=== PATIENT | female | born 1990 | race Caucasian/White ===

== ENCOUNTER 2019-04-17 17:02 | Emergency (ER) | payer MEDICAID ==
--- NOTE | 2019-04-17 17:52 | EDM.PDOC ---
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 The patient notes that she is roughly 5-6 weeks . She notes her last menstrual period to be 03/07/19. She states that she started spotting/bleeding last night, however this got better this morning. There was no bleeding during the day, she states that she was walking in [employer] and pushed a heavy shopping cart and she began to notice the bleeding that started again. She is not sure if there were any clots present. She denies any cramping at this time. She states that she has taken 5 positive test at home. She has had 2 other pregnancies with no complications. She is a at this time. She has an appointment with an OB provider at [facility] on May 02. She denies any urinary symptoms such as dysuria or urinary frequency or urgency. 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: Social & Family History - Tobacco Use Smoking Status *Q: Never Smoker - Recreational Drug Use Recreational Drug Use: No ED ROS GENERAL - Review of Systems Review Of Systems: See Below Constitutional: Reports: No Symptoms HEENT: Reports: No Symptoms Respiratory: Reports: No Symptoms Cardiovascular: Reports: No Symptoms Endocrine: Reports: No Symptoms GI/Abdominal: Reports: No Symptoms : Reports: Other (vaginal bleeding) Musculoskeletal: Reports: No Symptoms Skin: Reports: No Symptoms Neurological: Reports: No Symptoms Psychiatric: Reports: No Symptoms Hematologic/Lymphatic: Reports: No Symptoms ED EXAM - Physical Exam Exam: See Below Exam Limited By: No Limitations General Appearance: Alert, WD/WN, No Apparent Distress (pt is crying in the room ) Respiratory/Chest: No Respiratory Distress, Lungs Clear, Normal Breath Sounds, No Accessory Muscle Use, Chest Non-Tender Cardiovascular: Normal Peripheral Pulses, Regular Rate, Rhythm, No Murmur GI/Abdominal Exam: Normal Bowel Sounds, Soft, Non-Tender, No Distention (Female) Exam: Normal Bimanual Exam, Normal External Exam, Normal Speculum Exam, Vaginal Bleeding (small amount of dark red blood present in vaginal canal) . No: Adnexal Tenderness, Cervical Dilatation, Cervical Fluid, Cervix Motion Tenderness, Products of Conception, Tissue Present in Cervix/Vagina Heart Tones: Not [place] Movement: Not Appreciated Neurological: Alert, Oriented, Normal Cognition, No Motor/Sensory Deficits Psychiatric: Normal Affect, Normal Mood, Tearful Skin Exam: Warm, Dry, Intact, Normal Color, No Rash Course - Vital Signs Last Recorded V/S: Last Vital Signs Temp 98.3 F 04/17/19 17:11 Pulse 100 04/17/19 17:11 Resp 18 04/17/19 17:11 BP 127/76 04/17/19 17:11 Pulse Ox 97 04/17/19 17:11 - Orders/Labs/Meds Orders: Active Orders 24 hr Category Date Time Status OB Transvaginal [US] Stat Exams 04/17/19 17:27 Ordered PATIENT RETYPE [BBK] Routine Lab 04/17/19 18:23 Ordered Labs: Laboratory Tests 04/17/19 04/17/19 04/17/19 Range/Units 17:41 17:41 17:41 WBC 11.25 H (3.98-10.04) K/mm3 RBC 4.88 (3.98-5.22) M/mm3 Hgb 12.8 (11.2-15.7) gm/L Hct 39.7 (34.1-44.9) % MCV 81.4 (79.4-94.8) fl MCH 26.2 (25.6-32.2) pg MCHC 32.2 (32.2-35.5) g/dl RDW Std Deviation 44.5 (36.4-46.3) fL Plt Count 348 (182-369) K/mm3 MPV 9.1 L (9.4-12.3) fl Neut % (Auto) 59.8 (34.0-71.1) % Lymph % (Auto) 30.0 (19.3-51.7) % Haakon % (Auto) 8.0 (4.7-12.5) % Eos % (Auto) 2.0 (0.7-5.8) Baso % (Auto) 0.1 (0.1-1.2) % Neut # (Auto) 6.74 H (1.56-6.13) K/mm3 Lymph # (Auto) 3.37 (1.18-3.74) K/mm3 Haakon # (Auto) 0.90 H (0.24-0.36) K/mm3 Eos # (Auto) 0.22 (0.04-0.36) K/mm3 Baso # (Auto) 0.01 (0.01-0.08) K/mm3 HCG, Qual Positive H (NEGATIVE) HCG, Quant 2624.0 mIU/mL Blood Type Gel Antibody Screen 04/17/19 Range/Units 17:41 WBC (3.98-10.04) K/mm3 RBC (3.98-5.22) M/mm3 Hgb (11.2-15.7) gm/L Hct (34.1-44.9) % MCV (79.4-94.8) fl MCH (25.6-32.2) pg MCHC (32.2-35.5) g/dl RDW Std Deviation (36.4-46.3) fL Plt Count (182-369) K/mm3 MPV (9.4-12.3) fl Neut % (Auto) (34.0-71.1) % Lymph % (Auto) (19.3-51.7) % Haakon % (Auto) (4.7-12.5) % Eos % (Auto) (0.7-5.8) Baso % (Auto) (0.1-1.2) % Neut # (Auto) (1.56-6.13) K/mm3 Lymph # (Auto) (1.18-3.74) K/mm3 Haakon # (Auto) (0.24-0.36) K/mm3 Eos # (Auto) (0.04-0.36) K/mm3 Baso # (Auto) (0.01-0.08) K/mm3 HCG, Qual (NEGATIVE) HCG, Quant mIU/mL Blood Type A POSITIVE Gel Antibody Screen Negative - Re-Assessments/Exams Free Text/Narrative Re-Assessment/Exam: 04/17/19 17:51 Patient presents to the ED for the evaluation of a possible miscarriage. I have ordered labs and a transvaginal ultrasound for further evaluation of her symptoms. 04/17/19 18:45 Patient's hCG quantitative level is 2624. Which would place her anywhere in the 4-5 weeks range. Which would be consistent with her LMP, ultrasound reading is still pending. 04/17/19 19:49 Patient's US is done and demonstrates an early intrauterine , gestational sac measuring 7mm, no free fluid, and a simple R ovarian cyst measuring 2.7 cm x 2.7 cm. 04/17/19 20:06 OB ged preparation teacher, Dr. Malin, was consulted via telephone, he states that is no other worrisome signs or symptoms of this patient's visit. He recommends that she take it easy over the next couple days and get plenty of fluids. He states that she should keep her appointment with her OB provider on 02 May, she may call on Thursday to see if they would like an hCG level repeated or not. Departure - Departure Time of Disposition: 20:07 Disposition: Home, Self-Care 01 Condition: Fair Clinical Impression: Vaginal bleeding during - Discharge Information *PRESCRIPTION DRUG MONITORING PROGRAM REVIEWED*: No *COPY OF PRESCRIPTION DRUG MONITORING REPORT IN PATIENT TORITO: No Instructions: Vaginal Bleeding During , First Trimester Referrals: PCP,None [Primary Care Provider] - Forms: ED Department Discharge Additional Instructions: You have been evaluated in the ED today for your vaginal bleeding with . Your ultrasound showed a early intrauterine , with a gestational yolk sac identified, this sac diameter is 7 mm. There is no embryonic pole that has been identified, this is still a normal finding for an early . There is no significant free fluid, but it did show a simple appearing right ovarian cyst measuring 2.7 x 2.7 cm. This should not cause you any problems. The oracle application consultant ged preparation teacher recommends that you take it easy over the next couple days, get plenty of rest and fluids, and call your OB doctor on Thursday to see if they would like the hCG level repeated. He also recommended that you keep the May 02 appointment for further evaluation. Your hCG level at this ER visit was 2624. If you should develop increasing vaginal bleeding, cramping, with clots. This would be cause for immediate return to the ER for evaluation. Please return to the ED if her symptoms should change or worsen. - My Orders Last 24 Hours: My Active Orders 04/17/19 17:27 OB Transvaginal [US] Stat 04/17/19 18:23 PATIENT RETYPE [BBK] Routine - Assessment/Plan Last 24 Hours: My Active Orders 04/17/19 17:27 OB Transvaginal [US] Stat 04/17/19 18:23 PATIENT RETYPE [BBK] Routine
--- NOTE | 2019-04-19 10:18 | US ---
First trimester obstetrical ultrasound: Multiple real-time images were obtained transvaginally. Comparison: No previous study for current . Findings: Small cystic area noted within the endometrial cavity believed to represent gestational sac. Yolk sac is noted. No pole seen at this time. No subchorionic hemorrhage is identified. Right ovary shows an incidental corpus luteum cyst. Left ovary not visualized. Measurements: Gestational sac: 0.71 cm Impression: 1. Small cystic area within the endometrial cavity most likely due to gestational sac. Findings may represent very early . Recommend repeat study in 11 days to confirm normal developing . 2. Corpus luteum cyst within the maternal right ovary. Diagnostic code #2 I agree with preliminary report from [facility], finalized on 04/17/19, 8:45 PM Central Time
== END 2019-04-17 20:24 | disposition home or self-care (01) ==
LOC: JD.ED 17:02
DX: O20.9 Hemorrhage in early pregnancy, unspecified (principal); Z3A.01 Less than 8 weeks gestation of pregnancy; Z79.899 Other long term (current) drug therapy
CPT/HCPCS: 36415; 76817; 76817-26; 84702; 84703; 85025; 86850; 86900; 86901; 99282; 99284-25

== ENCOUNTER 2019-04-23 15:32 | Emergency (ER) | payer SELFPAY ==
--- NOTE | 2019-04-23 16:22 | EDM.PDOC ---
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 Patient was evaluated here 04/17/19 with concerns of having a miscarriage. Her last menstrual cycle was approximately 5 weeks ago. Ultrasound was obtained at that time indicating estimated gestation of 4-5 weeks. Her quantitative level was 2624. Bleeding subsided after evaluation. She was seen by Dr. Crump this past with no concerns at that time. Later that evening at approximately 1900 hrs. the bleeding started up again. She was changing her pad every time with using the bathroom q4hrs. She has been only using panty liners and notes they have not been completely saturated. States yesterday she developed some cramping with a few more episodes of bleeding. Nothing heavy noted. Today this morning approximately 1150 she passed a blood clot with some viveros tissue present. She is wondering if she had a miscarriage. Bleeding is minimal at this time. Her vital signs are stable. She has no abdominal pain, heavy vaginal bleeding, dizziness, nausea/vomiting, fever, dysuria, and/or any additional complaints. Again she has only changed her panty liners twice today with no saturating noted. Hx: . Currently taking vitamins. Lower Back Pain Score (Numeric/FACES): 5 - Related Data Allergies Allergy/AdvReac Type Severity Reaction Status Date / Time No Known Allergies Allergy Verified 04/17/19 17:10 Home Meds: Home Meds Pnv No.95/Ferrous Fum/Folic AC [ Caplet] 1 tab PO DAILY 04/17/19 [ History] Past Medical History HEENT History: Reports: Impaired Vision Other HEENT History: Wears glasses Genitourinary History: Reports: Pyelonephritis DIRECTOR OUTPATIENT SERVICES History: Reports: Social & Family History - Tobacco Use Smoking Status *Q: Never Smoker - Caffeine Use Caffeine Use: Reports: Coffee, Soda - Recreational Drug Use Recreational Drug Use: No ED ROS GENERAL - Review of Systems Review Of Systems: ROS reveals no pertinent complaints other than HPI. ED EXAM - Physical Exam Exam: See Below Exam Limited By: No Limitations General Appearance: Alert, WD/WN, No Apparent Distress Ears: Hearing Grossly Normal Nose: Normal Inspection Throat/Mouth: Normal Voice, No Airway Compromise Head: Atraumatic, Normocephalic Neck: Normal Inspection, Supple Respiratory/Chest: No Respiratory Distress, Lungs Clear, Normal Breath Sounds, No Accessory Muscle Use, Chest Non-Tender Cardiovascular: Normal Peripheral Pulses, Regular Rate, Rhythm GI/Abdominal Exam: Normal Bowel Sounds, Soft, Non-Tender, No Organomegaly, No Distention (Female) Exam: Vaginal Bleeding. No: Cervical Dilatation (unable to visualize), Products of Conception, Vaginal Discharge, Vaginal Lesions, Vaginal Tears Extremities: Normal Inspection Neurological: Alert, Oriented, CN II-XII Intact, Normal Cognition, No Motor/ Sensory Deficits Psychiatric: Normal Affect, Normal Mood Skin Exam: Warm, Dry, Intact, Normal Color Course - Vital Signs Last Recorded V/S: Last Vital Signs Temp 99.9 F 04/23/19 18:10 Pulse 96 04/23/19 18:10 Resp 18 04/23/19 18:10 BP 111/67 04/23/19 18:10 Pulse Ox 98 04/23/19 18:10 - Orders/Labs/Meds Labs: Laboratory Tests 04/23/19 04/23/19 Range/Units 16:20 16:20 WBC 18.28 H (3.98-10.04) K/mm3 RBC 4.98 (3.98-5.22) M/mm3 Hgb 13.2 (11.2-15.7) gm/L Hct 40.8 (34.1-44.9) % MCV 81.9 (79.4-94.8) fl MCH 26.5 (25.6-32.2) pg MCHC 32.4 (32.2-35.5) g/dl RDW Std Deviation 45.1 (36.4-46.3) fL Plt Count 411 H (182-369) K/mm3 MPV 9.4 (9.4-12.3) fl Neutrophils % (Manual) 78 H (40-60) % Band Neutrophils % 1 (0-10) % Lymphocytes % (Manual) 13 L (20-40) % Atypical Lymphs % 0 % Monocytes % (Manual) 8 (2-10) % Eosinophils % (Manual) 0 L (0.7-5.8) % Basophils % (Manual) 0 L (0.1-1.2) Platelet Estimate Adequate RBC Morph Comment Normal Sodium 140 (136-145) mEq/L Potassium 3.3 L (3.5-5.1) mEq/L Chloride 104 (98-107) mEq/L Carbon Dioxide 26 (21-32) mEq/L Anion Gap 13.3 (5-15) BUN 9 (7-18) mg/dL Creatinine 0.8 (0.55-1.02) mg/dL Est Cr Clr Drug Dosing 99.76 mL/min Estimated GFR (MDRD) > 60 (>60) mL/min BUN/Creatinine Ratio 11.3 L (14-18) Glucose 166 H (74-106) mg/dL Calcium 9.4 (8.5-10.1) mg/dL Total Bilirubin 0.3 (0.2-1.0) mg/dL AST 12 L (15-37) U/L ALT 21 (14-59) U/L Alkaline Phosphatase 82 (46-116) U/L Total Protein 7.8 (6.4-8.2) g/dl Albumin 4.1 (3.4-5.0) g/dl Globulin 3.7 gm/dL Albumin/Globulin Ratio 1.1 (1-2) HCG, Quant 1233.0 mIU/mL - Re-Assessments/Exams Free Text/Narrative Re-Assessment/Exam: Reviewed previous ED visit 04/17/19. Quantitative level was 2624. Estimated gestation of 4-5 weeks consistent with previous last menstrual period. Transvaginal ultrasound was obtained to which revealed intrauterine , gestational sac measuring 7 mm, no free fluid, and simple right ovarian cyst measuring 2.7 cm x [address] Malin was consult via telephone. He had stated that is no other worrisome signs or symptoms of this patient's visit. He recommends that she take it easy over the next couple days and get plenty of fluids. He stated that she should keep her appointment with her OB provider on 02 May, she may call on Thursday to see if they would like an hCG level repeated or not. Patient was evaluated by Dr. Crump this past with no concerns since bleeding had stopped. Later that evening at approximately 1900 hrs. the bleeding started up again. She was changing her pad every time with using the bathroom. This started about every 4 hours. This is only a pantiliners was not completely saturated. States yesterday she developed some cramping with a few more episodes of bleeding. Nothing heavy noted. Today this morning approximately 1150 she passed a blood clot with some viveros tissue present. She is wondering if she had a miscarriage. Bleeding is minimal at this time. Her vital signs are stable. She has no abdominal pain, heavy vaginal bleeding, dizziness, nausea vomiting, fever, dysuria, and/or any additional complaints. Again she is only changed her pantiliners twice today with no saturating noted. Will obtain CBC, chem 14, and hCG quantitative. Patient's blood type is A+. 04/23/19 16:28 With female nurse in place vaginal exam was performed. Minimal Blood within the vaginal os. Unable to clearly visualize the cervical os. With utilizing Q-tips able to expel portions of the blood and noted mild active bleeding present. Labs reviewed: White blood cell count 18.28 with neutrophil percentage of 78. No left shift. Suspect this is more likely a stress response. Patient has no fever, chills, body aches, abdominal pain, dysuria, or any abnormal drainage from her vagina minus the blood. Sodium 140. Potassium 3.3. Glucose 166. HCG quantitative 1233 decreased from previous quantitative hCG obtained this past weekend of 2624. Without ultrasound obtained it is unclear if this is a incomplete or complete . Do not see the need for obtaining a ultrasound at this time. Bleeding continues to be minimal. I discussed with the patient and return precautions. They will be in contact with her DIRECTOR OUTPATIENT SERVICES this coming Thursday for reevaluation. Patient had no further questions or concerns and agreed with plan. Discharge instructions as documented. Departure - Departure Time of Disposition: 17:59 Disposition: Home, Self-Care 01 Condition: Good Clinical Impression: Incomplete - Discharge Information Instructions: Incomplete Miscarriage Referrals: Lakshmi Crump MD [Primary Care Provider] - Forms: ED Department Discharge Additional Instructions: As discussed I believe you are having a miscarriage. Please call your DIRECTOR OUTPATIENT SERVICES specialist clinic this coming Thursday to be reevaluated. Please return back to the ED if you develops any increased bleeding, pain, fever, chills, body aches, and/or any additional new or worsening symptoms.
== END 2019-04-23 18:10 | disposition home or self-care (01) ==
LOC: JD.ED 15:32
DX: O03.4 Incomplete spontaneous abortion without complication (principal)
CPT/HCPCS: 36415; 80053; 84702; 85007; 85027; 99282; 99284